=== PATIENT | male | born 1985 | race African-American/Black ===

== ENCOUNTER 2017-05-12 03:31 | Emergency (ER) | payer OTHER ==
[~2017-05-12] VITALS: Ht 185.4 cm; Wt 86.0 kg
[~2017-05-12 03:31] MED LIST: ADDERALL XR 3030 MG PO; DOXYCYCLINE HY100 M3 PO; NAPROSYN500 MG PO; NOHOMEMEDS; [UNRECOGNIZED DRUG - REMARK]
[2017-05-12 05:42] VITALS: BP 113/82
== END 2017-05-12 05:43 | disposition home or self-care (01) ==
LOC: EME 03:31
DX: A64 Unspecified sexually transmitted disease (principal)
CPT/HCPCS: 81003; 99281; 99284; J0696

== ENCOUNTER 2018-01-05 18:01 | Inpatient (IN) | payer OTHER ==
[~2018-01-05] VITALS: Ht 185.4 cm; Wt 82.0 kg
[2018-01-05 20:14] LABS: AMPHETAMINE NEGATIVE (500 ng/mL); BARBITURATES NEGATIVE (200 ng/mL); BENZODIAZEPINES NEGATIVE (150 ng/mL); BUPRENORPHINE NEGATIVE (10 ng/mL); COCAINE NEGATIVE (150 ng/mL); METHADONE NEGATIVE (200 ng/mL); METHAMPHETAMINE NEGATIVE (500 ng/mL); OPIATES (MORPHINE) NEGATIVE (100 ng/mL); OXYCODONE NEGATIVE (100 ng/mL); PHENCYCLIDINE NEGATIVE (25 ng/mL); PROPOXYPHENE NEGATIVE (300 ng/mL); THC CANNABINOIDS NEGATIVE (50 ng/mL); TRICYCLIC ANTIDEPRESSANTS NEGATIVE (300 ng/mL)
[2018-01-05 20:22] LABS: HEMATOCRIT 41.7 % (38.0-50.0); HEMOGLOBIN 13.8 G/DL (12.5-16.6); MCH 29.2 PG (29.0-34.0); MCHC 33.1 G/DL (30.0-36.0); MCV 88.2 FL (86-99); PLATELET COUNT 221 K/uL (156-360); RBC DIS.WIDTH-CV 13.3 % (11.8-14.6); RBC DIS.WIDTH-SD 43.9 % (39-53); RED BLOOD COUNT 4.73 M/uL (4.00-5.50); WHITE BLOOD COUNT 3.7 K/uL (4.1-10.2)
[2018-01-05 20:40] LABS: CHLORIDE 106 mEq/L (99-109); POTASSIUM 3.6 mEq/L (3.7-5.4); SODIUM 142 mEq/L (136-147)
[2018-01-05 20:41] LABS: GLUCOSE 81 mg/dL (70-99)
[2018-01-05 20:45] LABS: CREATININE 1.1 mg/dL (0.6-1.3); GFR ESTIMATE (CALCULATED) > 59 mL/min/ (58.99-99999); SERUM ETHYL ALCOHOL < 10 mg/dL
[2018-01-05 20:47] LABS: UREA NITROGEN (BUN) 14 mg/dL (9-23)
[2018-01-05 20:48] LABS: SALICYLATE < 5.0 MG/DL (15-30)
[2018-01-05 20:49] LABS: ACETAMINOPHEN (TYLENOL) < 10 mcg/mL (10-30)
[2018-01-06 12:14] VITALS: BP 121/78
[2018-01-06] MEDS ORDERED: MOTRIN800 MG PO (12:56)
[2018-01-06 16:05] VITALS: BP 113/62
[2018-01-07 09:40] VITALS: BP 102/76
[2018-01-07 15:36] VITALS: BP 95/52
[2018-01-08 08:22] VITALS: BP 105/63
[2018-01-08 15:30] VITALS: BP 142/80
[2018-01-09 08:19] VITALS: BP 127/66
[2018-01-09 15:42] VITALS: BP 126/85
[2018-01-10 07:59] VITALS: BP 108/76
[2018-01-10] MEDS ORDERED: CITALOPRAM HBR10 MG PO (09:56)
== END 2018-01-10 11:29 | disposition home or self-care (01) | DRG 881 ==
LOC: EME 18:01 → 1WEST 01-06 10:28 → EDOF 01-06 10:28 → ENRESERV 01-06 11:57 → 1WEST 01-06 11:57
PROVIDERS: Emergency Medicine
DX: F32.9 Major depressive disorder, single episode, unspecified (principal); R45.851 Suicidal ideations; F98.8 Other specified behavioral and emotional disorders with onset usually occurring in childhood and adolescence; F41.9 Anxiety disorder, unspecified
CPT/HCPCS: 80048; 85027; 90837; 93005; 97150 GO; 97165 GO; 99281; 99284; G0480

== ENCOUNTER 2018-03-24 19:30 | Emergency (ER) | payer OTHER ==
[~2018-03-24] VITALS: Ht 185.4 cm; Wt 86.5 kg
[~2018-03-24 19:30] MED LIST changes: +CITALOPRAM HBR10 MG PO; +MOTRIN800 MG PO
[2018-03-24 19:33] VITALS: BP 121/82
[2018-03-24 21:18] LABS: SOURCE URINE
[2018-03-24 21:26] LABS: APPEARANCE SL.HAZY ((CLEAR)); BILIRUBIN NEGATIVE; BLOOD NEGATIVE; COLOR YELLOW ((YELLOW)); GLUCOSE (STRIP) NEGATIVE; KETONES NEGATIVE; LEUKOCYTES TRACE; NITRITE NEGATIVE; PROTEIN (STRIP) NEGATIVE; SPECIFIC GRAVITY 1.025 (1.000-1.030)
[2018-03-24 21:41] LABS: BACTERIA RARE /HPF; EPITHELIAL CELLS RARE /HPF; MUCUS TRACE /LPF; RED BLOOD CELLS 0-5 /HPF (0-5); UCUL ADDED? YES; WHITE BLOOD CELLS 20-30 /HPF (0-5)
[2018-03-25 13:51] LABS: CHLAMYDIA TRACHOMATIS NEGATIVE; NEISSERIA GONORRHOEAE POSITIVE
== END 2018-03-24 21:45 | disposition home or self-care (01) ==
LOC: EME 19:30
PROVIDERS: Physician Assistant
DX: Z20.2 Contact with and (suspected) exposure to infections with a predominantly sexual mode of transmission (principal)
CPT/HCPCS: 81003; 87086; 87491; 87591; 99281; 99284; J0696

== ENCOUNTER 2018-03-30 05:50 | Emergency (ER) | payer OTHER ==
[~2018-03-30] VITALS: Ht 185.4 cm; Wt 86.1 kg
[2018-03-30] MEDS ORDERED: HYDROXYZINE PAM25 MG PO (06:09)
[2018-03-30 06:49] LABS: BASOPHIL (%) 0.2 % (0-1); EOSINOPHIL (%) 2.1 % (0-5); EOSINOPHIL COUNT 0.1 K/uL (0-0.3); HEMATOCRIT 42.3 % (38.0-50.0); HEMOGLOBIN 14.1 G/DL (12.5-16.6); IMMATURE GRANULOCYTE (%) 0.2 % (0.0-0.7); LYMPHOCYTE (%) 34.2 % (15-42); LYMPHOCYTE COUNT 1.5 K/uL (1.0-2.8); MCH 29.3 PG (29.0-34.0); MCHC 33.3 G/DL (30.0-36.0); MCV 87.8 FL (86-99); MONOCYTE (%) 6.6 % (3-12); MONOCYTE COUNT 0.3 K/uL (0-0.8); NEUTROPHIL (%) 56.7 % (45-76); NEUTROPHIL COUNT 2.5 K/uL (1.8-6.4); PLATELET COUNT 187 K/uL (156-360); RBC DIS.WIDTH-CV 13.1 % (11.8-14.6); RBC DIS.WIDTH-SD 42.2 % (39-53); RED BLOOD COUNT 4.82 M/uL (4.00-5.50); WHITE BLOOD COUNT 4.4 K/uL (4.1-10.2)
[2018-03-30 06:57] LABS: ALBUMIN 4.1 g/dL (3.2-4.8); CHLORIDE 107 mEq/L (99-109); POTASSIUM 4.2 mEq/L (3.7-5.4); SODIUM 141 mEq/L (136-147)
[2018-03-30 07:00] LABS: GLUCOSE 87 mg/dL (70-99); TOTAL PROTEIN 6.6 g/dL (6.4-8.3)
[2018-03-30 07:02] LABS: TOTAL BILIRUBIN 0.6 mg/dL (0.0-1.0)
[2018-03-30 07:03] LABS: ALKALINE PHOSPHATASE 65 IU/L (3-129); CREATININE 1.1 mg/dL (0.6-1.3); GFR ESTIMATE (CALCULATED) > 59 mL/min/ (58.99-99999)
[2018-03-30 07:04] LABS: UREA NITROGEN (BUN) 12 mg/dL (9-23)
[2018-03-30 07:05] LABS: AST (GOT) 19 IU/L (2-34)
[2018-03-30 07:06] LABS: ALT (GPT) 19 IU/L (3-49)
[2018-03-30 07:43] VITALS: BP 107/82
== END 2018-03-30 07:43 | disposition home or self-care (01) ==
LOC: EME 05:50
PROVIDERS: Emergency Medicine
DX: R11.2 Nausea with vomiting, unspecified (principal); R05 Cough; F32.9 Major depressive disorder, single episode, unspecified
CPT/HCPCS: 71046; 80053; 85025; 99281; 99283